=== PATIENT | male | born 1995 | race Caucasian/White ===

== ENCOUNTER 2017-09-28 16:18 | Emergency (ER) | payer BC, SELFPAY ==
[2017-09-28] MEDS ORDERED: IBUPROFEN 400 MG TAB ONE (16:47)
--- NOTE | 2017-09-28 17:20 | EDPHYS ---
Physician Documentation [facility] Name: Corby Casillas Age: 22 yrs Sex: Male : 1995 Arrival Date: 09/28/2017 Time: 16:23 Bed 10 Private MD: ED Physician Carl Isaacs HPI: 09/28 17:46 This 22 yrs old Male presents to ER via Ambulatory with complaints of Flu pm1 Symptoms. 17:46 The patient or guardian reports cough, with no sputum, sore throat. Onset: The pm1 symptoms/episode began/occurred 8 day(s) ago. Severity of symptoms: in the emergency department the symptoms are unchanged. Modifying factors: The symptoms are alleviated by the symptoms are aggravated by nothing. The patient has not recently seen a physician. Patient with multiple family members with cough cold and congestion. Patient with complaints of left side of throat pain with swallowing and left ear pain. Historical: - Allergies: 16:28 No Known Allergies; aj - Home Meds: 16:28 None [Active]; aj - PMHx: 16:28 None; aj - PSHx: 16:28 None; aj - Immunization history:: Adult Immunizations up to date. - Social history:: Smoking status: Patient/guardian denies using tobacco. ROS: 17:46 Eyes: Negative for injury, pain, redness, and discharge. pm1 17:46 Neck: Negative for injury, pain, and swelling, Cardiovascular: Negative for chest pain, palpitations, and edema, Respiratory: Negative for shortness of breath, cough, wheezing, and pleuritic chest pain, Abdomen/GI: Negative for abdominal pain, nausea, vomiting, diarrhea, and constipation, Back: Negative for injury and pain, MS/Extremity: Negative for injury and deformity, Skin: Negative for injury, rash, and discoloration, Neuro: Negative for headache, weakness, numbness, tingling, and seizure. 17:46 Constitutional: Positive for fever, Negative for poor PO intake. 17:46 ENT: Positive for ear pain, sore throat. Exam: 17:46 Constitutional: This is a well developed, well nourished patient who is awake, alert, pm1 and in no acute distress. Head/Face: Normocephalic, atraumatic. Eyes: Pupils equal round and reactive to light, extra-ocular motions intact. Lids and lashes normal. Conjunctiva and sclera are non-icteric and not injected. Cornea within normal limits. Periorbital areas with no swelling, redness, or edema. 17:46 Neck: Trachea midline, no thyromegaly or masses palpated, and no cervical lymphadenopathy. Supple, full range of motion without nuchal rigidity, or vertebral point tenderness. No Meningismus. Chest/axilla: Normal chest wall appearance and motion. Nontender with no deformity. No lesions are appreciated. Cardiovascular: Regular rate and rhythm with a normal S1 and S2. No gallops, murmurs, or rubs. Normal PMI, no JVD. No pulse deficits. Respiratory: Lungs have equal breath sounds bilaterally, clear to auscultation and percussion. No rales, rhonchi or wheezes noted. No increased work of breathing, no retractions or nasal flaring. Abdomen/GI: Soft, non-tender, with normal bowel sounds. No distension or tympany. No guarding or rebound. No evidence of tenderness throughout. Back: No spinal tenderness. No costovertebral tenderness. Full range of motion. Skin: Warm, dry with normal turgor. Normal color with no rashes, no lesions, and no evidence of cellulitis. MS/ Extremity: Pulses equal, no cyanosis. Neurovascular intact. Full, normal range of motion. 17:46 ENT: External ear(s): are unremarkable, Ear canal(s): are normal, TM's: are normal, Nose: is normal, Mouth: is normal, no abscess, no drooling, no injury, no laceration, no lesion(s), no gum abnomalities, no lip abnormalities, no mucosal abnormalities, no tongue abnormalities, Posterior pharynx: is normal, Airway: normal, no evidence of obstruction, patent, Tonsils: are normal in appearance, swelling, is not appreciated, peritonsillar mass, is not appreciated, pooling of secretions, is not appreciated. Vital Signs: 16:28 BP 124 / 89; Pulse 100; Resp 20; Temp 100.2; Pulse Ox 98% on R/A; Weight 74.84 kg; aj Height 5 ft. 7 in. (170.18 cm); 17:11 BP 122 / 76; Pulse 83; Resp 17; Temp 98.1(O); Pulse Ox 99% on R/A; Pain 3/10; ed1 17:11 Temp 98.1(O); ed1 16:28 Body Mass Index 25.84 (74.84 kg, 170.18 cm) MDM: 16:31 Patient medically screened. pm1 17:17 Data reviewed: vital signs. Data interpreted: Pulse oximetry: on room air is 99 %. pm1 Interpretation: normal. Counseling: I had a detailed discussion with the patient and/or guardian regarding: the historical points, exam findings, and any diagnostic results supporting the discharge/admit diagnosis, lab results, the need for outpatient follow up, to return to the emergency department if symptoms worsen or persist or if there are any questions or concerns that arise at home, pending throat culture in 2 days. 09/28 16:29 Order name: Flu; Complete Time: 17:09 09/28 16:29 Order name: Strep; Complete Time: 17:09 09/28 17:02 Order name: Throat Culture EDMS Administered Medications: 16:49 Drug: Ibuprofen 800 mg Route: PO; ed1 17:11 Follow up: Temp 98.1 Oral; Response: No adverse reaction; Temperature is decreased ed1 Disposition: 09/29 07:16 Co-signature as Attending Physician, Carl Isaacs MD I agree with the assessment and the [facility] plan of care. Disposition: 09/28/17 17:20 Discharged to Home. Impression: Acute upper respiratory infection, unspecified. - Condition is Stable. - Discharge Instructions: Upper Respiratory Infection, Adult, Viral Infections. - Work release form, Medication Reconciliation Form, Thank You Letter, Antibiotic Education form. - Follow up: Emergency Department; When: As needed; Reason: Worsening of condition. Follow up: Private Physician; When: 2 - 3 days; Reason: Recheck today's complaints, Continuance of care, Re-evaluation by your physician. - Problem is new. - Symptoms have improved. Signatures: Dispatcher [employer] EDMS Nell Snow RN RN aj Anderson, Corey, MD MD cha Riggs, Erika, SUBSTITUTE TEACHER SUBSTITUTE TEACHER ed1 Galo Brunson, CORONER/MEDICAL EXAMINER CORONER/MEDICAL EXAMINER pm1 Corrections: (The following items were deleted from the chart) 09/28 17:26 17:20 09/28/2017 17:20 Discharged to Home. Impression: Acute upper respiratory ed1 infection, unspecified. Condition is Stable. Forms are Medication Reconciliation Form, Thank You Letter, Antibiotic Education, Prescription Opioid Use. Follow up: Emergency Department; When: As needed; Reason: Worsening of condition. Follow up: Private Physician; When: 2 - 3 days; Reason: Recheck today's complaints, Continuance of care, Re-evaluation by your physician. Problem is new. Symptoms have improved. pm1
--- NOTE | 2017-09-28 17:20 | ER ---
Nurse's Notes [facility] Name: Corby Casillas Age: 22 yrs Sex: Male : 1995 Arrival Date: 09/28/2017 Time: 16:23 Bed 10 Private MD: Diagnosis: Acute upper respiratory infection, unspecified Presentation: 09/28 16:27 Presenting complaint: Patient states: Flu like symptoms for 8 days. Transition of care: aj patient was not received from another setting of care. Onset of symptoms was September 20, 2017. Initial Sepsis Screen: Does the patient meet any 2 criteria? No. Patient's initial sepsis screen is negative. Does the patient have a suspected source of infection? No. Patient's initial sepsis screen is negative. Care prior to arrival: None. 16:27 Method Of Arrival: Ambulatory 16:27 Acuity: IVA 4 Triage Assessment: 16:28 General: Appears in no apparent distress. uncomfortable, Behavior is calm, cooperative, aj appropriate for age. Pain: Complains of pain in left aspect of posterior pharynx and right aspect of posterior pharynx. EENT: Reports nasal congestion. Neuro: Level of Consciousness is awake, alert, obeys commands, Oriented to person, place, time, situation. Respiratory: Reports cough that is. GI: Reports nausea, vomiting. Derm: Skin is intact, is healthy with good turgor, Skin is pink, warm \T\ dry. normal. Historical: - Allergies: 16:28 No Known Allergies; aj - Home Meds: 16:28 None [Active]; aj - PMHx: 16:28 None; aj - PSHx: 16:28 None; aj - Immunization history:: Adult Immunizations up to date. - Social history:: Smoking status: Patient/guardian denies using tobacco. Screenin:31 Abuse screen: Denies threats or abuse. Denies injuries from another. Nutritional ed1 screening: No deficits noted. Tuberculosis screening: No symptoms or risk factors identified. Fall Risk None identified. Assessment: 16:31 General: Appears in no apparent distress. Behavior is calm, cooperative. Pain: ed1 Complains of pain in throat Pain does not radiate. Pain currently is 4 out of 10 on a pain scale. Quality of pain is described as burning, Pain began 2-3 days ago. Is continuous. Neuro: Level of Consciousness is awake, alert, obeys commands, Oriented to person, place, time, situation. Cardiovascular: Denies chest pain, Heart tones S1 S2 present Capillary refill < 3 seconds in bilateral fingers. Respiratory: Reports cough that is dry, persistent Airway is patent Respiratory effort is even, unlabored, Respiratory pattern is regular, symmetrical, Breath sounds are clear bilaterally. GI: No signs and/or symptoms were reported involving the gastrointestinal system. : No signs and/or symptoms were reported regarding the genitourinary system. EENT: Nares with drainage noted Throat is reddened. Derm: Skin is pink, warm \T\ dry. Musculoskeletal: Circulation, motion, and sensation intact. 16:31 Reassessment: I agree with assessment completed by ESTEFANIA Pierre . aa 17:24 Reassessment: Patient appears in no apparent distress at this time. Patient and/or ed1 family updated on plan of care and expected duration. Pain level reassessed. Patient is alert, oriented x 3, equal unlabored respirations, skin warm/dry/pink. Patient states feeling better. Patient states symptoms have improved. Vital Signs: 16:28 BP 124 / 89; Pulse 100; Resp 20; Temp 100.2; Pulse Ox 98% on R/A; Weight 74.84 kg; aj Height 5 ft. 7 in. (170.18 cm); 17:11 BP 122 / 76; Pulse 83; Resp 17; Temp 98.1(O); Pulse Ox 99% on R/A; Pain 3/10; ed1 17:11 Temp 98.1(O); ed1 16:28 Body Mass Index 25.84 (74.84 kg, 170.18 cm) ED Course: 16:23 Patient arrived in ED. sb2 16:27 Triage completed. aj 16:28 Arm band placed on left wrist. Patient placed in an exam room. aj 16:30 Gabby Reddy LVN is Primary Nurse. ed1 16:31 Galo Brunson NP is PHCP. pm1 16:31 Carl Isaacs MD is Attending Physician. pm1 16:31 Patient has correct armband on for positive identification. Call light in reach. ed1 17:02 Throat Culture Sent. ed1 17:24 No provider procedures requiring assistance completed. Patient did not have IV access ed1 during this emergency room visit. Administered Medications: 16:49 Drug: Ibuprofen 800 mg Route: PO; ed1 17:11 Follow up: Temp 98.1 Oral; Response: No adverse reaction; Temperature is decreased ed1 Outcome: 17:20 Discharge ordered by MD. pm1 17:24 Discharged to home ambulatory. ed1 17:24 Condition: good 17:24 Discharge instructions given to patient, Instructed on discharge instructions, follow up and referral plans. Demonstrated understanding of instructions, follow-up care. 17:26 Patient left the ED. ed1 Signatures: Nell Snow RN RN Vanesa Martínez RN RN aa5 Gabby Reddy LVN KENNEL WORKER ed1 Galo Brunson, SAMUEL DIE CUTTER pm1 Shelley Sanz sb2
== END 2017-09-28 17:26 | disposition home or self-care (01) ==
LOC: ER 16:18
DX: J06.9 Acute upper respiratory infection, unspecified (principal)
CPT/HCPCS: 87070; 87081; 87804; 99283